=== PATIENT | male | born 1950 | race Caucasian/White ===

== ENCOUNTER 2021-07-11 19:18 | Outpatient (REF) | payer MEDICARE, OTHER, SELFPAY ==
[2021-07-11 22:15] LABS: Hemoglobin A1C 5.3 % (<5.7)
[2021-07-11 22:30] LABS: ALT 16 U/L (16-63); AST 17 U/L (15-37); Albumin 2.4 g/dL (3.4-5.0); Alkaline Phosphatase 103 U/L (46-116); BUN 9 mg/dL (7-18); Bilirubin, Total 0.5 mg/dL (0.2-1.0); Calcium 8.6 mg/dL (8.5-10.1); Calculated LDL 117 mg/dL (<100); Chloride 100 mmol/L (98-107); Cholesterol 207 mg/dL (<200); Glucose 149 mg/dL (74-106); HDL Cholesterol 47 mg/dL (40-60); Potassium 4.4 mmol/L (3.5-5.1); Sodium 137 mmol/L (136-145); Total Protein 6.4 g/dL (6.4-8.2); Triglyceride 217 mg/dL (<150)
[2021-07-11 23:10] LABS: Vitamin B12 754 pg/mL (193-986)
== END 2021-07-11 19:19 | disposition home or self-care (01) ==
LOC: NCHCN 19:18
PROVIDERS: Referring Provider Nurse Practitioner Family; Visit Provider Nurse Practitioner Family
DX: I10 Essential (primary) hypertension (principal); Z00.00 Encounter for general adult medical examination without abnormal findings
CPT/HCPCS: 80053; 80061; 82607; 82746; 83036

== ENCOUNTER 2021-08-29 14:08 | Outpatient (REF) | payer MEDICARE, OTHER, SELFPAY ==
[2021-08-30 07:16] LABS: Albumin 2.8 g/dL (3.4-5.0); BUN 7 mg/dL (7-18); Bilirubin, Total 0.6 mg/dL (0.2-1.0); CREATININE 1.1 mg/dL (0.70-1.30); Calcium 9.3 mg/dL (8.5-10.1); Calculated LDL 59 mg/dL (<100); Cholesterol 133 mg/dL (<200); Glucose 104 mg/dL (74-106); HDL Cholesterol 55 mg/dL (40-60); Total Protein 6.8 g/dL (6.4-8.2); Triglyceride 97 mg/dL (<150)
[2021-08-30 07:17] LABS: ALT 16 U/L (16-63); AST 13 U/L (15-37); Alkaline Phosphatase 95 U/L (46-116); Anion Gap 8.5 mmol/L (3-11); CO2 27.5 mmol/L (21.0-32.0); Chloride 102 mmol/L (98-107); Potassium 4.2 mmol/L (3.5-5.1); Sodium 138 mmol/L (136-145)
== END 2021-08-29 14:09 | disposition home or self-care (01) ==
LOC: NCHCN 14:08
PROVIDERS: Visit Provider Nurse Practitioner Family
DX: Z86.79 Personal history of other diseases of the circulatory system (principal)
CPT/HCPCS: 80053; 80061

== ENCOUNTER 2021-09-12 15:07 | Outpatient (REF) | payer MEDICARE, OTHER, SELFPAY ==
[2021-09-12 16:00] LABS: Anion Gap 8.9 mmol/L (3-11); BUN 9 mg/dL (7-18); CO2 24.1 mmol/L (21.0-32.0); CREATININE 0.9 mg/dL (0.70-1.30); Calcium 9.2 mg/dL (8.5-10.1); Chloride 101 mmol/L (98-107); Glucose 115 mg/dL (74-106); Potassium 4.3 mmol/L (3.5-5.1); Sodium 134 mmol/L (136-145)
== END 2021-09-12 15:08 | disposition home or self-care (01) ==
LOC: NCHCN 15:07
PROVIDERS: Visit Provider Nurse Practitioner Family
DX: I10 Essential (primary) hypertension (principal)
CPT/HCPCS: 80048

== ENCOUNTER 2021-09-24 08:28 | Outpatient (REF) | payer MEDICARE, OTHER, SELFPAY ==
[2021-09-20 21:56] LABS: Anion Gap 3.8 mmol/L (3-11); BUN 12 mg/dL (7-18); CO2 29.2 mmol/L (21.0-32.0); CREATININE 0.9 mg/dL (0.70-1.30); Calcium 8.5 mg/dL (8.5-10.1); Chloride 99 mmol/L (98-107); Glucose 86 mg/dL (74-106); Potassium 4.4 mmol/L (3.5-5.1); Sodium 132 mmol/L (136-145)
== END 2021-09-24 08:29 | disposition home or self-care (01) ==
LOC: NCHCN 08:28
PROVIDERS: Visit Provider Nurse Practitioner Family
DX: I10 Essential (primary) hypertension (principal)
CPT/HCPCS: 80048

== ENCOUNTER 2021-09-27 12:00 | Outpatient (REF) | payer MEDICARE, OTHER, SELFPAY ==
[2021-09-27 22:52] LABS: Anion Gap 7.1 mmol/L (3-11); BUN 8 mg/dL (7-18); CO2 26.9 mmol/L (21.0-32.0); CREATININE 0.9 mg/dL (0.70-1.30); Calcium 8.6 mg/dL (8.5-10.1); Chloride 97 mmol/L (98-107); Glucose 134 mg/dL (74-106); Potassium 4.5 mmol/L (3.5-5.1); Sodium 131 mmol/L (136-145)
== END 2021-09-27 12:01 | disposition home or self-care (01) ==
LOC: LBN 12:00
PROVIDERS: Visit Provider Nurse Practitioner Family
DX: E87.1 Hypo-osmolality and hyponatremia (principal)
CPT/HCPCS: 80048

== ENCOUNTER 2021-10-02 14:14 | Outpatient (REF) | payer MEDICARE, OTHER, SELFPAY ==
[2021-10-02 22:23] LABS: BUN 8 mg/dL (7-18); CREATININE 0.8 mg/dL (0.70-1.30); Calcium 8.5 mg/dL (8.5-10.1); Chloride 98 mmol/L (98-107); Glucose 138 mg/dL (74-106); Potassium 4.5 mmol/L (3.5-5.1); Sodium 131 mmol/L (136-145)
== END 2021-10-02 14:15 | disposition home or self-care (01) ==
LOC: NCHCN 14:14
PROVIDERS: Visit Provider Nurse Practitioner Family
DX: E87.1 Hypo-osmolality and hyponatremia (principal)
CPT/HCPCS: 80048

== ENCOUNTER 2021-10-10 14:31 | Outpatient (REF) | payer MEDICARE, OTHER, SELFPAY ==
[2021-10-10 22:58] LABS: Anion Gap 7.7 mmol/L (3-11); BUN 6 mg/dL (7-18); CO2 26.3 mmol/L (21.0-32.0); CREATININE 0.9 mg/dL (0.70-1.30); Calcium 8.9 mg/dL (8.5-10.1); Chloride 100 mmol/L (98-107); Glucose 109 mg/dL (74-106); Potassium 4.8 mmol/L (3.5-5.1); Sodium 134 mmol/L (136-145)
[2021-10-11 18:01] LABS: PSA, Screening 0.7 ng/mL (0.0-6.5)
[2021-10-12 09:19] LABS: Hepatitis C Ab w Rflx HCV PCR Negative (Negative)
== END 2021-10-10 14:32 | disposition home or self-care (01) ==
LOC: NCHCN 14:31
PROVIDERS: Visit Provider Nurse Practitioner Family
DX: E87.1 Hypo-osmolality and hyponatremia (principal); Z11.59 Encounter for screening for other viral diseases; Z12.5 Encounter for screening for malignant neoplasm of prostate
CPT/HCPCS: 80048; 84153; 86803

== ENCOUNTER 2021-11-17 16:25 | Outpatient (REF) | payer MEDICARE, OTHER, SELFPAY ==
[2021-11-17 20:35] LABS: HCT 38.4 % (40.0-50.0); HGB 12.7 g/dL (13.5-17.5); MCH 32.7 pg (27.0-33.0); MCHC 33.1 % (32.0-36.0); Platelet Count 326 10^3/uL (130-400); RBC 3.88 10^6/uL (4.36-5.78); RDW 12.7 % (11.8-14.1); RDW-SD 46.1 fL; WBC 10.09 10^3/uL (4.4-10.8)
[2021-11-17 22:33] LABS: ALT 14 U/L (16-63); AST 13 U/L (15-37); Albumin 3.4 g/dL (3.4-5.0); Alkaline Phosphatase 123 U/L (46-116); Anion Gap 7.9 mmol/L (3-11); BUN 13 mg/dL (7-18); Bilirubin, Total 0.5 mg/dL (0.2-1.0); CO2 26.1 mmol/L (21.0-32.0); CREATININE 1.2 mg/dL (0.70-1.30); Calcium 9.6 mg/dL (8.5-10.1); Chloride 98 mmol/L (98-107); Estimated GFR 59.51 (mL/min/1.73m2); Folate > 20.0 ng/mL (8.6-20.0); Glucose 118 mg/dL (74-106); Magnesium 1.8 mg/dL (1.8-2.4); Potassium 5.9 mmol/L (3.5-5.1); Sodium 132 mmol/L (136-145); Total Protein 8.1 g/dL (6.4-8.2); Vitamin B12 857 pg/mL (193-986)
== END 2021-11-17 16:26 | disposition home or self-care (01) ==
LOC: NCHCN 16:25
PROVIDERS: Visit Provider Registered Nurse
DX: R42 Dizziness and giddiness (principal); D75.89 Other specified diseases of blood and blood-forming organs; Z91.81 History of falling
CPT/HCPCS: 80053; 85027; 82607; 82746; 83735

== ENCOUNTER 2021-11-28 15:22 | Outpatient (REF) | payer MEDICARE, OTHER, SELFPAY ==
[2021-11-28 21:30] LABS: Prothrombin Time 10.3 sec (9.3-11.0)
[2021-11-28 21:31] LABS: ALT 14 U/L (16-63); AST 16 U/L (15-37); Albumin 3.3 g/dL (3.4-5.0); Alkaline Phosphatase 114 U/L (46-116); Anion Gap 8.2 mmol/L (3-11); BUN 8 mg/dL (7-18); Bilirubin, Total 0.5 mg/dL (0.2-1.0); CO2 25.8 mmol/L (21.0-32.0); CREATININE 0.9 mg/dL (0.70-1.30); Calcium 9.5 mg/dL (8.5-10.1); Chloride 98 mmol/L (98-107); Glucose 120 mg/dL (74-106); Potassium 5.2 mmol/L (3.5-5.1); Sodium 132 mmol/L (136-145); Total Protein 7.8 g/dL (6.4-8.2)
[2021-11-28 21:36] LABS: HCT 36.1 % (40.0-50.0); MCH 32.8 pg (27.0-33.0); MCHC 33.2 % (32.0-36.0); MCV 98.6 fL (80-95); MPV 9.1 fL (8.0-11.0); Platelet Count 317 10^3/uL (130-400); RBC 3.66 10^6/uL (4.36-5.78); RDW 12.8 % (11.8-14.1); RDW-SD 46.1 fL; WBC 10.57 10^3/uL (4.4-10.8)
== END 2021-11-28 15:23 | disposition home or self-care (01) ==
LOC: NCHCN 15:22
PROVIDERS: Visit Provider Family Medicine
DX: E87.5 Hyperkalemia (principal); R16.0 Hepatomegaly, not elsewhere classified; F10.10 Alcohol abuse, uncomplicated
CPT/HCPCS: 80053; 85027; 85610

== ENCOUNTER 2022-04-19 15:03 | Outpatient (REF) | payer MEDICARE, OTHER, SELFPAY ==
[2022-04-19 20:43] LABS: HCT 27.2 % (40.0-50.0); MCH 33.2 pg (27.0-33.0); MCHC 33.1 % (32.0-36.0); MCV 100 fL (80-95); MPV 9.3 fL (8.0-11.0); Platelet Count 366 10^3/uL (130-400); RBC 2.71 10^6/uL (4.36-5.78); RDW-SD 47.7 fL; WBC 8.83 10^3/uL (4.4-10.8)
[2022-04-19 20:58] LABS: Anion Gap 6.3 mmol/L (3-11); BUN 17 mg/dL (7-18); CO2 27.7 mmol/L (21.0-32.0); CREATININE 1.2 mg/dL (0.70-1.30); Calcium 8.7 mg/dL (8.5-10.1); Calculated LDL 35 mg/dL (<100); Chloride 100 mmol/L (98-107); Cholesterol 116 mg/dL (<200); Estimated GFR 59.51 (mL/min/1.73m2); Glucose 143 mg/dL (74-106); HDL Cholesterol 41 mg/dL (40-60); Potassium 4.4 mmol/L (3.5-5.1); Sodium 134 mmol/L (136-145); Triglyceride 203 mg/dL (<150)
== END 2022-04-19 15:04 | disposition home or self-care (01) ==
LOC: NCHCN 15:03
PROVIDERS: Visit Provider Nurse Practitioner Family
DX: E78.2 Mixed hyperlipidemia (principal); E87.5 Hyperkalemia; I27.0 Primary pulmonary hypertension
CPT/HCPCS: 80048; 80061; 85027

== ENCOUNTER 2022-05-22 15:42 | Outpatient (REF) | payer MEDICARE, OTHER, SELFPAY | END 2022-05-22 15:43 | disposition home or self-care (01) | LOC: NCHCN 15:42 | PROVIDERS: Visit Provider Nurse Practitioner Family | DX: L03.031 Cellulitis of right toe (principal) | CPT/HCPCS: 87077; 87070; 87186; 87205 ==

== ENCOUNTER 2022-06-05 19:11 | Outpatient (REF) | payer MEDICARE, OTHER, SELFPAY ==
[2022-06-05 20:39] LABS: Abs Immature Grans 0.03 10^3/uL (0.0-0.06); Absolute Basophil Count 0.04 10^3/uL (0.0-0.2); Absolute Eosinophil Count 0.46 10^3/uL (0.0-0.7); Absolute Monocyte Count 0.72 10^3/uL (0.1-0.8); Absolute Neutrophil Count 5.84 10^3/uL (1.2-6.7); Basophils % 0.5; Eosinophils % 5.2; HCT 23.4 % (40.0-50.0); HGB 7.7 g/dL (13.5-17.5); Immature Grans % 0.3; Lymphocytes % 19.3; MCH 31.3 pg (27.0-33.0); MCHC 32.9 % (32.0-36.0); MCV 95 fL (80-95); Monocytes % 8.2; Neutrophils % 66.5; Platelet Count 387 10^3/uL (130-400); RBC 2.46 10^6/uL (4.36-5.78); RDW 13.7 % (11.8-14.1); RDW-SD 47.2 fL; WBC 8.79 10^3/uL (4.4-10.8)
== END 2022-06-05 19:12 | disposition home or self-care (01) ==
LOC: NCHCN 19:11
PROVIDERS: Visit Provider Nurse Practitioner Family
DX: D64.9 Anemia, unspecified (principal)
CPT/HCPCS: 85025

== ENCOUNTER 2022-08-20 18:11 | Outpatient (REF) | payer MEDICARE, OTHER, SELFPAY ==
[2022-08-20 21:11] LABS: Abs Immature Grans 0.01 10^3/uL (0.0-0.06); Absolute Basophil Count 0.03 10^3/uL (0.0-0.2); Absolute Eosinophil Count 0.21 10^3/uL (0.0-0.7); Absolute Lymphocyte Count 1.63 10^3/uL (1.2-3.4); Absolute Monocyte Count 0.77 10^3/uL (0.1-0.8); Absolute Neutrophil Count 4.91 10^3/uL (1.2-6.7); Basophils % 0.4; Eosinophils % 2.8; HCT 29.4 % (40.0-50.0); HGB 9.5 g/dL (13.5-17.5); Immature Grans % 0.1; Lymphocytes % 21.6; MCH 30.1 pg (27.0-33.0); MCHC 32.3 % (32.0-36.0); MCV 93 fL (80-95); MPV 9.4 fL (8.0-11.0); Monocytes % 10.2; Neutrophils % 64.9; Platelet Count 336 10^3/uL (130-400); RBC 3.16 10^6/uL (4.36-5.78); RDW 15.6 % (11.8-14.1); RDW-SD 53.1 fL; WBC 7.56 10^3/uL (4.4-10.8)
[2022-08-20 21:13] LABS: Iron 34 ug/dL (65-175); Total Iron Binding Capacity 340 ug/dL (250-450); Transferrin Sat 10 % (20-55)
[2022-08-20 21:39] LABS: Ferritin 39 ng/mL (26-388); Vitamin B12 771 pg/mL (193-986)
[2022-08-20 21:40] LABS: Folate > 20.0 ng/mL (8.6-20.0)
== END 2022-08-20 18:12 | disposition home or self-care (01) ==
LOC: NCHCN 18:11
PROVIDERS: Visit Provider Nurse Practitioner Family
DX: D64.9 Anemia, unspecified (principal); R19.5 Other fecal abnormalities; E53.8 Deficiency of other specified B group vitamins
CPT/HCPCS: 82607; 82728; 82746; 83540; 83550; 85025

== ENCOUNTER 2023-07-16 16:25 | Outpatient (REF) | payer MEDICARE, OTHER, SELFPAY ==
[2023-07-16 21:26] LABS: Abs Immature Grans 0.02 10^3/uL (0.0-0.06); Absolute Basophil Count 0.02 10^3/uL (0.0-0.2); Absolute Eosinophil Count 0.26 10^3/uL (0.0-0.7); Absolute Lymphocyte Count 0.99 10^3/uL (1.2-3.4); Absolute Monocyte Count 0.59 10^3/uL (0.1-0.8); Absolute Neutrophil Count 3.89 10^3/uL (1.2-6.7); Basophils % 0.3; Eosinophils % 4.5; HCT 35.8 % (40.0-50.0); HGB 11.8 g/dL (13.5-17.5); Immature Grans % 0.3; Lymphocytes % 17.2; MCH 32.4 pg (27.0-33.0); MCV 98 fL (80-95); MPV 9.3 fL (8.0-11.0); Monocytes % 10.2; Neutrophils % 67.5; Platelet Count 270 10^3/uL (130-400); RBC 3.64 10^6/uL (4.36-5.78); RDW 13.8 % (11.8-14.1); RDW-SD 49.2 fL; WBC 5.77 10^3/uL (4.4-10.8)
[2023-07-16 21:35] LABS: ALT 11 U/L (16-63); AST 13 U/L (15-37); Albumin 3.3 g/dL (3.4-5.0); Alkaline Phosphatase 153 U/L (46-116); Anion Gap 10.8 mmol/L (3-11); BUN 20 mg/dL (7-18); Bilirubin, Total 0.4 mg/dL (0.2-1.0); CO2 25.2 mmol/L (21.0-32.0); CREATININE 1.4 mg/dL (0.70-1.30); Calcium 9.1 mg/dL (8.5-10.1); Chloride 105 mmol/L (98-107); Estimated GFR 52.74 (mL/min/1.73m2); Glucose 244 mg/dL (74-106); Potassium 3.8 mmol/L (3.5-5.1); Sodium 141 mmol/L (136-145); Total Protein 7.6 g/dL (6.4-8.2)
[2023-07-17 18:38] LABS: PSA, Screening 0.5 ng/mL (<=6.5)
== END 2023-07-16 16:26 | disposition home or self-care (01) ==
LOC: NCHCN 16:25
PROVIDERS: Visit Provider Family Medicine
DX: D64.9 Anemia, unspecified (principal); E78.5 Hyperlipidemia, unspecified; I10 Essential (primary) hypertension; Z12.5 Encounter for screening for malignant neoplasm of prostate
CPT/HCPCS: 80053; 84153; 85025

== ENCOUNTER 2023-10-25 13:15 | Outpatient (REF) | payer MEDICARE, OTHER, SELFPAY ==
[2023-10-25 21:33] LABS: COMMENT (LAB VIEW ONLY) 57.19 mg/dL
[2023-10-25 21:34] LABS: Microalb ug/mg Crea 477.9 ug/mg Cr
== END 2023-10-25 13:16 | disposition home or self-care (01) ==
LOC: NCHCN 13:15
PROVIDERS: Visit Provider Family Medicine
DX: E11.9 Type 2 diabetes mellitus without complications (principal)
CPT/HCPCS: 82043; 82570

== ENCOUNTER 2024-01-16 19:25 | Outpatient (REF) | payer MEDICARE, OTHER, SELFPAY ==
[2024-01-16 16:05] LABS: ALT 14 U/L (16-63); AST 18 U/L (15-37); Alkaline Phosphatase 111 U/L (46-116); Anion Gap 9.8 mmol/L (3-11); BUN 23 mg/dL (7-18); Bilirubin, Total 0.5 mg/dL (0.2-1.0); CO2 25.2 mmol/L (21.0-32.0); CREATININE 1.2 mg/dL (0.70-1.30); Calcium 8.8 mg/dL (8.5-10.1); Chloride 110 mmol/L (98-107); Estimated GFR 63.46 (mL/min/1.73m2); Glucose 162 mg/dL (74-106); Potassium 4.2 mmol/L (3.5-5.1); Sodium 145 mmol/L (136-145); Total Protein 7.1 g/dL (6.4-8.2)
== END 2024-01-16 19:26 | disposition home or self-care (01) ==
LOC: NCHCN 19:25
PROVIDERS: PCP Family Medicine; Visit Provider Family Medicine
DX: I10 Essential (primary) hypertension (principal)
CPT/HCPCS: 80053

== ENCOUNTER 2024-04-03 15:20 | Outpatient (REF) | payer MEDICARE, OTHER, SELFPAY ==
[2024-04-03 21:00] LABS: HCT 33.3 % (40.0-50.0); MCH 32.7 pg (27.0-33.0); MCV 99 fL (80-95); MPV 9.6 fL (8.0-11.0); Platelet Count 247 10^3/uL (130-400); RBC 3.36 10^6/uL (4.36-5.78); RDW 13.7 % (11.8-14.1); RDW-SD 49.3 fL
== END 2024-04-03 15:21 | disposition home or self-care (01) ==
LOC: NCHCN 15:20
PROVIDERS: PCP Family Medicine; Visit Provider Registered Nurse
DX: D50.0 Iron deficiency anemia secondary to blood loss (chronic) (principal)
CPT/HCPCS: 85027

== ENCOUNTER 2024-05-14 19:40 | Outpatient (REF) | payer MEDICARE, OTHER, SELFPAY ==
[2024-05-14 21:41] LABS: Anion Gap 5.5 mmol/L (3-11); BUN 28 mg/dL (7-18); CO2 28.5 mmol/L (21.0-32.0); CREATININE 1.6 mg/dL (0.70-1.30); Calcium 9.2 mg/dL (8.5-10.1); Chloride 109 mmol/L (98-107); Estimated GFR 44.93 (mL/min/1.73m2); Glucose 177 mg/dL (74-106); NT-proBNP 528 pg/mL (<300); Potassium 4.4 mmol/L (3.5-5.1); Sodium 143 mmol/L (136-145)
== END 2024-05-14 19:41 | disposition home or self-care (01) ==
LOC: NCHCN 19:40
PROVIDERS: PCP Family Medicine; Visit Provider Family Medicine
DX: I10 Essential (primary) hypertension (principal); D64.9 Anemia, unspecified; I35.0 Nonrheumatic aortic (valve) stenosis
CPT/HCPCS: 80048; 85027; 83880

== ENCOUNTER 2024-05-20 11:40 | Outpatient (REF) | payer MEDICARE, OTHER, SELFPAY ==
[2024-05-20 15:12] LABS: HCT 30.9 % (40.0-50.0); HGB 10.1 g/dL (13.5-17.5); MCH 32.4 pg (27.0-33.0); MCHC 32.7 % (32.0-36.0); MCV 99 fL (80-95); MPV 9.6 fL (8.0-11.0); Platelet Count 256 10^3/uL (130-400); RBC 3.12 10^6/uL (4.36-5.78); RDW 13.8 % (11.8-14.1); RDW-SD 49.8 fL; WBC 6.32 10^3/uL (4.4-10.8)
== END 2024-05-20 11:41 | disposition home or self-care (01) ==
LOC: NCHCN 11:40
PROVIDERS: PCP Family Medicine; Visit Provider Family Medicine
DX: D64.9 Anemia, unspecified (principal)
CPT/HCPCS: 85027

== ENCOUNTER 2024-12-17 16:37 | Outpatient (REF) | payer MEDICARE, OTHER, SELFPAY ==
[2024-12-17 21:39] LABS: COMMENT (LAB VIEW ONLY) 48.64 mg/dL
== END 2024-12-17 16:38 | disposition home or self-care (01) ==
LOC: NCHCN 16:37
PROVIDERS: PCP Family Medicine; Visit Provider Family Medicine
DX: E11.9 Type 2 diabetes mellitus without complications (principal)
CPT/HCPCS: 82043; 82570